=== PATIENT | male | born 1970 | race Caucasian/White ===

== ENCOUNTER 2023-06-23 17:20 | Outpatient (AMB) | payer BC, SELFPAY ==
[2023-06-23 17:23] VITALS: BP 122/90; PULSE 85; O2SAT 97; BMI 22.1
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
== END 2023-06-23 18:02 | disposition home or self-care (01) ==
LOC: HO.HMGH 17:20
PROVIDERS: PCP Internal Medicine; Visit Provider Internal Medicine
DX: Z00.00 Encounter for general adult medical examination without abnormal findings (principal); M79.674 Pain in right toe(s); L30.9 Dermatitis, unspecified; L81.9 Disorder of pigmentation, unspecified; R63.4 Abnormal weight loss; M54.50 Low back pain, unspecified; G89.29 Other chronic pain; M54.2 Cervicalgia; Z12.11 Encounter for screening for malignant neoplasm of colon
CPT/HCPCS: 99396

== ENCOUNTER 2023-07-22 12:55 | Outpatient (AMB) | payer BC, SELFPAY ==
--- NOTE | 2023-07-22 13:03 | MHC.OFFVIS ---
Intake Vital Signs 07/22/23 13:06 Height 6 ft 2 in Weight 180 lb 12.465 oz BMI 23.2 BP 126/88 Blood Pressure Location Lt brachial Position Sitting Pulse 71 Intake Visit Reasons: Colonoscopy Screening Intake Note: Alan presents in the office as a colonoscopy screening. CC: He states that he is having no concerns with his symptoms. No more blood in the stool. He did have a benign polyp and he was supposed to have another colonoscopy. He has an issue with his face where it turns red and it comes and goes - it will also peal. He is not sure if this is related to his intestines. His weight was going down and it was a concern but it seems to have come back. 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 Allergies cyclobenzaprine [From FLEXERIL] Allergy (Unknown, Verified 07/22/23 13:07) NAUSEA/RESTLESS LEGS Medication List - Last Reconciled 07/22/23 by Dee Dee Rodríguez PA-C carisoprodol 350 mg PO BID PRN 30 days HPI HPI Comments History of Present Illness Details A 53 y/o male referred due to hx colon polyps He had a colonoscopy about 8 years ago-for blood in the stool- he had a polyp-was to repeat at 5 year He has no GI complaints bowels ok, typically non issue Appetite good- no heartburn Lost weight- he thought - reweighed- wt the same-he had a associated having extra stress however that has this time resolved. He has no nausea, vomiting, hematemesis, hematochezia, fever chills No headaches, dizziness shortness of breath or chest pain PFSH Medical History IBS (irritable bowel syndrome) Chronic low back pain Chronic neck pain Surgical History S/P colonoscopy (~2013) Family History Mother No problems noted. Father Heart problem Housing: House Alcohol intake: current Alcohol intake frequency: holidays/special occasions only Patient Tobacco Use Status: Never used Tobacco e-Cigarette/Vaping Use: Never Used Second Hand Smoke Exposure: No Substance Use Type: Marijuana service: No Current occupational status: employed ([employer]) Review of Systems Const All systems reviewed & are unremarkable except as noted in HPI and below Card Denies chest pain and Denies dyspnea Resp Denies dyspnea GI Denies abdominal pain, Denies heartburn, Denies nausea and Denies vomiting Psych Reports anxiety Physical Exam Vital Signs: Last Vital Signs Pulse 71 07/22/23 13:06 BP 126/88 07/22/23 13:06 BMI result Body Mass Index 23.2 Const General: cooperative, healthy appearing, comfortable and no acute distress Orientation/consciousness: patient oriented x3 Limitations: no limitations Eyes Sclerae: sclerae normal Resp Effort & Inspection: normal respiratory effort and able to speak in complete sentences Auscultation: clear to auscultation bilaterally, no rales, no rhonchi and no wheezes Cardio Rate: regular rate Rhythm: regular rhythm Heart sounds: S1 normal heart sound present and S2 normal heart sound present GI Palpation (GI): Soft to palpation and nontender Auscultation: normal bowel sounds Skin General skin exam: no rashes or lesions noted Neuro General: patient oriented x3 Extrem General: Yes full ROM Psych Appearance: grossly normal and well kempt Mental Status: mental status grossly normal Speech and movement: Normal speech and movement present Affect: normal affect and Anxious affect present Attitude: cooperative Thought process: Normal thought process present Thought content: Normal thought content present Insight: Good insight present (Psych) Judgement: Good judgement present (Psych) Assessment & Plan Assessment & Plan (1) Weight loss, unintentional: Comment: was stressed-personal issues, wt now normal reviewed GI record-2018 pancreatitis- Code(s): R63.4 - Abnormal weight loss (2) History of colon polyps: Comment: last colonoscopy about 8 years ago Code(s): Z86.010 - Personal history of colonic polyps Plan polyp surveillance colonoscopy MG prep Orders: Orders Colonoscopy - GI Use Only 07/22/23 Z86.010 - Personal history of colonic polyps Medications: New bisacodyl (Dulcolax (bisacodyl)) Day before procedure, prep day Take 4 tablets by mouth upon awakening followed by large glass of water 20 mg (4 x 5 mg) PO ONCE 1 day 4 tabs 0RF colonoscopy prep Z12.11 - Encounter for screening for malignant neoplasm of colon polyethylene glycol 3350 (Miralax) Take as directed by mouth the day before your procedure. 238 grams PO ONCE 1 day 238 grams 0RF laxative effect Patient Instructions: Pleasant 53-year-old male history colon polyps overdue for polyp surveillance Reviewed the indication, rare risks need for escorted due to anesthesia MiraLax Gatorade prep reviewed, literature Opportunity for questions answered to his satisfaction Encouraged to call with questions or concerns Coding Level of Care Code New Pt Level 3 (65861) Diagnoses Weight loss, unintentional R63.4 History of colon polyps Z86.010 Time Spent (min) 30
[2023-07-22 13:06] VITALS: BP 126/88; PULSE 71; BMI 23.2
== END 2023-07-22 13:44 | disposition home or self-care (01) ==
PROVIDERS: PCP Internal Medicine; Visit Provider Physician Assistant
DX: R63.4 Abnormal weight loss (principal); Z86.010 Personal history of colon polyps
CPT/HCPCS: 99203

== ENCOUNTER → 2023-07-22 12:55 | Outpatient (BNVA) | payer BC, SELFPAY | PROVIDERS: PCP Internal Medicine; Visit Provider Physician Assistant ==

== ENCOUNTER 2025-08-12 15:21 | Outpatient (AMB) | payer BC, SELFPAY ==
--- NOTE | 2025-08-12 15:38 | A.OFFVIS_ITS ---
Vital Signs 08/12/25 15:40 Height 6 ft 2 in Weight 178 lb BMI 22.9 BP 112/67 Blood Pressure Location Lt brachial Position Sitting Pulse 78 Intake Visit Reasons: pre Colonoscopy Intake Note: Patient complex follow up for 2nd pre Colonoscopy screening/Dee Dee former pt katie was 07/22/2023. Patient cc: rectal bleeding on and off in the pass, denies any other GI issues. 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 Referred by PCP for pre colonoscopy screening and further evaluation of blood in his stools. He reports an episode of blood in his stool noted on wiping a few months ago, which has since resolved. He had a more significant episode of hematochezia approximately 10 years ago, describing it as dripping at times. His first and only colonoscopy was performed 7-8 years ago, polyp findings, and he was recommended to follow up in 5 years, making him currently overdue. He reports normal daily bowel movements with a sense of complete evacuation and denies associated abdominal pain, nausea, or vomiting. The patient reports heartburn that occurs when he is sleeping and is triggered by overeating, which resolves on its own. He denies regurgitation but has had lifelong difficulty swallowing pills, though he denies dysphagia with food. His past medical history includes a possible history of anemia noted on labs from 2018 and a hospitalization in 2018 for severe stomach pain. He denies any personal or family history of colon or stomach cancer. Patient denies: fever/chills, n/v, appetite changes, regurgitation,dysphasia, unintentional wt loss, ab pain. Social hx: -ETOH use The patient reports rare alcohol consumption, with his last use being over the summer. -smokes marijuana , denies other recreational drug use -non-smoker - family hx as below -denies personal hx of CA -denies significant cardiopulmonary history -tolerated anesthesia in the past without difficulty. [facility] Medical History (Updated 08/12/25 @ 16:11 by Sol Wesley CNP) Heartburn Anemia IBS (irritable bowel syndrome) Chronic low back pain Chronic neck pain Surgical History S/P colonoscopy (~2013) Family History Mother No problems noted. Father Heart problem Social History Housing: House Alcohol intake: current Alcohol intake frequency: holidays/special occasions only Patient Tobacco Use Status: Never used Tobacco e-Cigarette/Vaping Use: Never Used Second Hand Smoke Exposure: No Substance Use Type: Marijuana service: No Current occupational status: employed ([employer]) Review of Systems Const Reports as per HPI ENT Reports as per HPI Card Reports as per HPI Resp Reports as per HPI GI Reports as per HPI Reports as per HPI Physical Exam Vital Signs: Last Vital Signs Pulse 78 08/12/25 15:40 BP 112/67 08/12/25 15:40 BMI result Body Mass Index 22.9 Const General: healthy appearing, no acute distress and well developed Nutritional Appearance: average body habitus Orientation/consciousness: patient oriented x3 HEENT Head: Yes normal to inspection, Yes normocephalic and Yes atraumatic Face and sinus: Yes normal facial exam Eyes General: appearance normal, both eyes and all related structures Neck Neck: Yes normal visual inspection Resp Effort & Inspection: normal respiratory effort, able to speak in complete sentences, no tracheal deviation and symmetric chest movement Cardio Jugular venous distension: no JVD Neuro General: patient oriented x3 Gait exam (Neuro): Normal gait present Psych Appearance: grossly normal Mental Status: mental status grossly normal Speech and movement: Normal speech and movement present Affect: normal affect Attitude: cooperative Thought process: Normal thought process present Thought content: Normal thought content present Insight: Good insight present (Psych) Judgement: Good judgement present (Psych) Assessment & Plan Assessment & Plan (1) Colon cancer screening: Code(s): Z12.11 - Encounter for screening for malignant neoplasm of colon Category: Medical Plan: The patient is overdue for a screening colonoscopy and has a history of hematochezia. - The differential diagnosis for his symptoms includes hemorrhoids, fissures, polyps, or malignancy. - An order for a colonoscopy will be placed, and the scheduling team will contact the patient to arrange the appointment. - The bowel preparation will consist of a full bottle of Miralax mixed with 64 ounces of Gatorade, supplemented with laxative tablets sent to [facility] pharmacy. - Instructions provided include following a clear liquid diet the day before the procedure, avoiding red, blue, or purple colored liquids. - The patient was instructed to have nothing by mouth, including water, for 4 hours prior to the procedure and was reminded to arrange for reliable transportation due to sedation. (2) Blood in stool: Code(s): K92.1 - Melena Category: Medical Plan: as above (3) Heartburn: Code(s): R12 - Heartburn Category: Medical Plan: The patient reports heartburn triggered by overeating which resolves spontaneously. - No active management warranted, symptoms appear to be self-limited and managed with dietary awareness. (4) Anemia: Code(s): D64.9 - Anemia, unspecified Category: Medical Qualifiers: Anemia type: unspecified type Qualified Code(s): D64.9 - Anemia, unspecified Plan: The patient has a history of macrocytic anemia from 2018, but no recent lab work is available. - An order for basic labs was placed for the patient to complete on a walk-in basis prior to his upcoming appointment with his primary care provider. Plan Follow-up after colonoscopy or sooner as needed Time: I spent a total of 20 minutes on the date of encounter which includes: Preparing to see the patient (reviewed previous documentation, test results and medical history) Performing a medically appropriate exam and/or evaluation Ordering medications, tests, and procedures Documenting clinical information in the health record Orders: Orders Comprehensive [place]. Panel Fast Today D64.9 - Anemia, unspecified, K92.1 - Melena Lipase Today K92.1 - Melena Complete Blood Count Auto Diff Today D64.9 - Anemia, unspecified, K92.1 - Melena, Z12.11 - Encounter for screening for malignant neoplasm of colon Vitamin B12 and Folate Today D64.9 - Anemia, unspecified Referrals GI Procedure Notification K92.1 - Melena, Z12.11 - Encounter for screening for malignant neoplasm of colon Medications: New polyethylene glycol 3350 (Miralax) per colonoscopy prep instructions 238 grams PO ONCE 238 grams 0RF bisacodyl take four tablets once day of colonoscopy prep 20 mg (4 x 5 mg) PO ONCE 4 tabs 0RF Coding Level of Care Code New Pt Est Pt Level 3 (02533) Patient Type New Diagnoses Colon cancer screening Z12.11 Blood in stool K92.1 Heartburn R12 Anemia, unspecified type D64.9 Anemia type: unspecified type
[2025-08-12 15:40] VITALS: BP 112/67; PULSE 78; BMI 22.9
== END 2025-08-12 16:57 | disposition home or self-care (01) ==
LOC: HO.HGI 15:22
PROVIDERS: PCP Internal Medicine; Visit Provider Nurse Practitioner Family
DX: Z01.818 Encounter for other preprocedural examination (principal); Z12.11 Encounter for screening for malignant neoplasm of colon; K92.1 Melena; R12 Heartburn; D64.9 Anemia, unspecified
CPT/HCPCS: S0285

== ENCOUNTER 2025-08-31 14:30 | Outpatient (AMB) | payer BC, SELFPAY ==
--- NOTE | 2025-08-31 14:37 | A.OFFPC_ITS ---
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 Required: No Accompanied by: Self / Same As Patient Allergies cyclobenzaprine (From [facility]LEXERIL) Allergy (Unknown, Verified 08/31/25 14:50) NAUSEA/RESTLESS LEGS Medication List - Last Reconciled 08/31/25 by LAURI Borden bisacodyl 20 mg (4 x 5 mg) PO ONCE polyethylene glycol 3350 (Miralax) 238 grams PO ONCE Tobacco use date assessed: 08/31/25 Dental Screening Dental Screen Date: 08/31/25 Did you have a dental visit in the last 12 months?: Yes Did you have a dental problem in the last 6 months where you did not have access to dental care?: No Was dental information given to patient?: Patient has dentist HPI annual exam - see comments HPI Details Dentist: up to date Eye: due, has not for 7 years Snellen: Right: Left: Corrected vision: no STI screening: Colonoscopy: waiting for a call back Pap Smer:n/a PHQ-9: Flu: does not take the flu vaccine COVID: x3 Tdap: declines Diet: regular Exercise:work out few times a week, built a gym in the basement The patient is a 55 year old male presenting for an annual physical examination. He reports new-onset, severe, intermittent pain in the joint of his great toe, which causes him to limp most days. The pain occurs for no apparent reason and can be severe enough to affect his ability to walk. He also reports similar, though less severe, pain in his thumb joint, which he attributes to possible arthritis. The patient does have chronic lower back pain for which he takes soma intermittently. He has a history of hematochezia approximately 10 years ago, for which he underwent a colonoscopy. He recently experienced a recurrence of bright red blood in his stool, which has been subsiding. He is currently awaiting a call to schedule a follow-up colonoscopy. Past medical history is significant for an episode of pancreatitis two years ago, which required a one-week hospitalization. This was attributed to an overconsumption of fatty and sugary foods. He also has a history of a bulging disc since age 10, which has been managed without surgery and is generally stable, though he reports occasional back pain and a recent back tweak after skiing. Regarding immunizations, he has had the initial COVID-19 vaccine and one booster but experienced a bad reaction with nausea, cold sweats, and chest pain, and thus declines further doses. He does not receive the annual flu vaccine and declined a tetanus vaccine today, but he plans to get the shingles vaccine. Health Maintenance - Dental care: Patient had a dental visi t yesterday. - Eye exam: Patient has not had a recent eye exam but notes difficulty with reading small print and plans to see an provider contracting consultant. - Colon cancer screening: Patient is patience eduled for a colonoscopy and is awaiting a call with the date and prep kit. - Prostate cancer screening: Patient has not had a prostate exam before and is considering one. He will have his PSA level checked with his fasting labs. He was advised to avoid sexual activity and bicycling for 24 hours prior to the blood test. - Immunizations: He declines the influen za and tetanus vaccines. - He declines further COVID-19 vaccines due to a prior adverse reaction. - He plans to get the shingles vaccine a t a pharmacy. - Diet and exercise: He reports having a regular diet and exercises a few times a week, engaging in cardio activities using a heavy bag and speed bag. Social History - Diet: Reports a regular diet with no s pecial restrictions. - Exercise: He works out a few times per week in a home gym, which includes a heavy bag, speed bag, and weights, focusing on cardiovascular exercise. Results HPI Comments History of Present Illness Details History of Present Illness The patient is a 55 year old male presenting for an annual physical examination. He reports new-onset, severe, intermittent pain in the joint of his great toe, which causes him to limp most days. The pain occurs for no apparent reason and can be severe enough to affect his ability to walk. He also reports similar, though less severe, pain in his thumb joint, which he attributes to possible arthritis. The patient does have chronic lower back pain for which he takes soma intermittently. He has a history of hematochezia approximately 10 years ago, for which he underwent a colonoscopy. He recently experienced a recurrence of bright red blood in his stool, which has been subsiding. He is currently awaiting a call to schedule a follow-up colonoscopy. Past medical history is significant for an episode of pancreatitis two years ago, which required a one-week hospitalization. This was attributed to an overconsumption of fatty and sugary foods. He also has a history of a bulging disc since age 10, which has been managed without surgery and is generally stable, though he reports occasional back pain and a recent back tweak after skiing. Regarding immunizations, he has had the initial COVID-19 vaccine and one booster but experienced a bad reaction with nausea, cold sweats, and chest pain, and thus declines further doses. He does not receive the annual flu vaccine and declined a tetanus vaccine today, but he plans to get the shingles vaccine. Health Maintenance - Dental care: Patient had a dental visi t yesterday. - Eye exam: Patient has not had a recent eye exam but notes difficulty with reading small print and plans to see an provider contracting consultant. - Colon cancer screening: Patient is patience eduled for a colonoscopy and is awaiting a call with the date and prep kit. - Prostate cancer screening: Patient has not had a prostate exam before and is considering one. He will have his PSA level checked with his fasting labs. He was advised to avoid sexual activity and bicycling for 24 hours prior to the blood test. - Immunizations: He declines the influen za and tetanus vaccines. - He declines further COVID-19 vaccines due to a prior adverse reaction. - He plans to get the shingles vaccine a t a pharmacy. - Diet and exercise: He reports having a regular diet and exercises a few times a week, engaging in cardio activities using a heavy bag and speed bag. Social History - Diet: Reports a regular diet with no s pecial restrictions. - Exercise: He works out a few times per week in a home gym, which includes a heavy bag, speed bag, and weights, focusing on cardiovascular exercise. Results [facility] Medical History Heartburn Anemia IBS (irritable bowel syndrome) Chronic low back pain Chronic neck pain Surgical History S/P colonoscopy (~2013) Family History Mother No problems noted. Father Heart problem Social History Housing: House Alcohol intake: current Alcohol intake frequency: holidays/special occasions only Patient Tobacco Use Status: Never used Tobacco e-Cigarette/Vaping Use: Never Used Second Hand Smoke Exposure: No Substance Use Type: Marijuana service: No Current occupational status: employed ([employer]) Cognitive needs: No Hearing needs: No Vision needs: No Questionnaire PHQ-9 Over the last 2 weeks, how often have you been bothered by any of the following problems? 1. Little interest or pleasure in doing things: not at all 2. Feeling down, depressed, or hopeless: not at all 3. Trouble falling or staying asleep, or sleeping too much: not at all 4. Feeling tired or having little energy: not at all 5. Poor appetite or overeating: not at all 6. Feeling bad about yourself - or that you are a failure or have let yourself or your family down: not at all 7. Trouble concentrating on things, such as reading the newspaper or watching television: not at all 8. Moving or speaking so slowly that other people could have noticed. Or the opposite - being so fidgety or restless that you have been moving around a lot more than usual: not at all 9. Thoughts that you would be better off or of hurting yourself in some way: not at all Total score: 0 Depression Screening Interpretation: Negative Depression Screening Done: Yes 03453 - PHQ-9 Billing: Yes Source: Developed by Drs. Henry aRmey, Shazia De La Fuente, Suraj Armstrong and colleagues, with an educational jenna from [employer]. Thrive Questionnaire Date Thrive assessed: 08/31/25 I am a: Patient What is your living situation today?: I have a steady place to live Within the past 12 months, did the food you bought not last and you didn't have the money to get more?: I choose not to answer this question Within the past 12 months, did you worry whether your food would run out before you got money to buy more?: I choose not to answer this question Do you have trouble paying for medicines?: I choose not to answer this question Do you have trouble getting transportation to medical appointments?: I choose not to answer this question Do you have trouble paying your heating and electricity bill?: I choose not to answer this question Do you have trouble taking care of your child, family member or friend?: I choose not to answer this question Do you have trouble with day-to-day activities such as bathing, preparing meals, shopping, managing finances, etc.?: I choose not to answer this question Are you currently unemployed and looking for a job?: I choose not to answer this question Are you interested in more education?: I choose not to answer this question Please select the resources that you would like help with: None Currently or been in a relationship where the following occur: I choose not to answer THRIVE Score: 0 AUDIT C Alcohol Use Questionnaire (AUDIT-C) 1. How often do you have a drink containing alcohol?: Never Total Score: 0 ALIVIA-7 AMB Questionnaire AILVIA-7 Date ALIVIA - 7 assessed: 08/31/25 Feeling nervous, anxious, or on edge: 0 = Not at all Not being able to stop or control worryin = Not at all Worrying too much about different things: 0 = Not at all Trouble relaxin = Not at all Being so restless that it is hard to sit still: 0 = Not at all Becoming easily annoyed or irritable: 0 = Not at all Feeling afraid as if something awful might happen: 0 = Not at all Total ALIVIA-7 score (0-4 normal; 5-9 mild; 10-14 moderate; 15-21 severe): 0 Source: Developed by Drs. Henry Ramey, Shazia De La Fuente, Suraj Armstrong and colleagues, with an educational jenna from [employer]. ALIVIA-7 Assessment Billing ALIVIA-7 Assessment Tool: ALIVIA-7 Assessment 47086 Review of Systems Const Denies headache(s) Eyes Denies loss of vision ENT Denies vertigo, Denies dizziness, Denies headache(s) and Denies sore throat Card Denies chest pain, Denies leg edema and Denies lightheadedness Resp Denies cough, Denies hemoptysis and Denies wheezing GI Denies abdominal pain, Denies melena, Denies constipation, Denies diarrhea and Denies vomiting Denies dysuria, Denies urinary frequency and Denies urinary urgency Musc Reports back pain (on and off), Reports arthralgias (right great toe), Denies joint swelling, Denies numbness and Denies tingling Neuro Denies Abnormal speech present, Denies behavioral changes, Denies vertigo, Denies dizziness, Denies headache(s), Denies loss of vision, Denies memory loss, Denies numbness and Denies tingling Psych Denies anxiety, Denies behavioral changes, Denies depression, Denies memory loss and Denies panic attacks Kunal/Lymph Denies easy bleeding and Denies easy bruising Aller/Immun Denies wheezing Physical exam (Primary Care) Vital Signs: Last Vital Signs Resp 18 08/31/25 14:45 BP 112/60 08/31/25 14:45 Oxygen Delivery Method Room Air 08/31/25 14:45 BMI result Body Mass Index 23.6 Tobacco/Smoking Status: Tobacco use Status Tobacco use date assessed 08/31/25 08/31/25 14:50 Patient Tobacco Use Status Never used Tobacco 08/31/25 14:37 e-Cigarette/Vaping Use Never Used 08/31/25 14:37 PHQ-9: PHQ-9 Score PHQ-9: Total score 0 08/31/25 15:12 Depression Screening Interpretation: Negative Thrive Assessment: Date of Thrive Assessment Date Thrive assessed 08/31/25 08/31/25 14:50 Currently or been in a relationship where the following occur: I choose not to answer Const General: healthy appearing, no acute distress, alert and awake Nutritional Appearance: well nourished Orientation/consciousness: oriented to person, oriented to place and oriented to time [facility] Ears: TM normal on the right and Abnormal EAC present excessive cerumen on the right General nose exam: Normal nasal mucous membranes and turbinates present Eyes Conjunctivae: conjunctivae normal Sclerae: sclerae normal Pupils: Equal, round and reactive pupils present Neck Neck: Yes no lymphadenopathy and Yes no JVD Thyroid: Thyroid normal Carotids: no bruits Resp Effort & Inspection: normal respiratory effort and not tachypneic Auscultation: no crackles, no rales, no rhonchi and no wheezes Cardio Rate: regular rate Rhythm: regular rhythm Heart sounds: S1 normal heart sound present, S2 normal heart sound present, no murmurs and normal S1 and S2 GI Palpation (GI): Soft to palpation, nontender, no hepatomegaly and no splenomegaly Auscultation: normal bowel sounds General: Yes no CVA tenderness Back/Spine/Pelvis Back: no CVA tenderness Thoracic/Lumbar Spine: No lumbar spinal tenderness Skin General skin exam: no rashes or lesions noted and dry skin Neuro General: oriented to person, oriented to place and oriented to time Cranial nerves: Yes CN's II-XII intact bilaterally, Yes Equal, round and reactive pupils present and Yes Nystagmus not present Speech: No Abnormal speech present Gait exam (Neuro): Normal gait present Motor exam (neuro): no tremor noted Deep tendon reflexes (DTR's): Right triceps reflex intensity grade: 2+, Left triceps reflex intensity grade: 2+, Rt Biceps (C5, C6): 2+, Left biceps reflex intensity grade: 2+, Right brachioradialis reflex intensity grade: 2+, Left brachioradialis reflex intensity grade: 2+, Right patellar reflex intensity grade: 2+ and Left patellar reflex intensity grade: 2+ Extrem Right upper extremity: full ROM Left upper extremity: full ROM Right lower extremity: full ROM and foot Details: toes with normal ROM and no edema; no edema Left lower extremity: full ROM; no edema Psych Mental Status: mental status grossly normal Speech and movement: Normal speech and movement present Affect: normal affect Attitude: cooperative Thought process: Normal thought process present Coding Level of Care Code Est Pt Prev Care 40-64y(98175) Diagnoses Annual physical exam Z00.00 Pain of right great toe M79.674 Chronic midline low back pain, unspecified whether sciatica present M54.50; G89.29 Chronicity: chronic Back pain laterality: midline Sciatica presence: unspecified whether sciatica present Anemia, unspecified type D64.9 Anemia type: unspecified type Blood in stool K92.1 Heartburn R12 Immunization counseling Z71.85 Impacted cerumen of right ear H61.21 Additional Codes ALIVIA-7 Assessment Billing - ALIVIA-7 Assessment Tool: ALIVIA-7 Assessment 15488 ([id number]) PHQ-9 - 15755 - PHQ-9 Billing: Yes ([id number]) Time Spent (min) 37 Assessment & Plan Assessment & Plan (1) Annual physical exam: Code(s): Z00.00 - Encounter for general adult medical examination without abnormal findings Category: Medical (2) Pain of right great toe: Code(s): M79.674 - Pain in right toe(s) Category: Medical (3) Low back pain: Code(s): M54.50 - Low back pain, unspecified Category: Medical Qualifiers: Chronicity: chronic Back pain laterality: midline Sciatica presence: unspecified whether sciatica present Qualified Code(s): M54.50 - Low back pain, unspecified; G89.29 - Other chronic pain (4) Anemia: Code(s): D64.9 - Anemia, unspecified Category: Medical Qualifiers: Anemia type: unspecified type Qualified Code(s): D64.9 - Anemia, unspecified (5) Blood in stool: Code(s): K92.1 - Melena Category: Medical (6) Heartburn: Code(s): R12 - Heartburn Category: Medical (7) Immunization counseling: Code(s): Z71.85 - Encounter for immunization safety counseling Category: Medical (8) Impacted cerumen of right ear: Code(s): H61.21 - Impacted cerumen, right ear Category: Medical Plan Plan Patient was informed and verbally consented to the use of an ambient scribe for clinic note documentation during this visit. 1. Annual Health Maintenance The patient will proceed with fasting labs, which will include a cholesterol panel and a PSA test for prostate cancer screening. He was counseled to avoid any activity that puts pressure on the groin area, such as sexual activity or bicycling, for 24 hours prior to the PSA blood draw to avoid false elevations. He is pending scheduling for a colonoscopy. He was encouraged to see an provider contracting consultant for his vision changes. He plans to obtain the shingles vaccine. He declined the influenza and tetanus vaccines. Follow-up is scheduled for his annual physical next year. 2. Arthralgia Of Great Toe To evaluate the severe, intermittent pain in his great toe, an X-ray of the foot has been ordered. He can have this done at the same time as his lab work. 3. Hematochezia The patient reports a recent, resolving episode of bright red blood per rectum. This will be further evaluated with the upcoming colonoscopy he is scheduled for. 4. Cerumen Impaction Significant cerumen impaction was noted on examination. The patient reports using ear drops and a home water device for management and was encouraged to continue efforts to clear the impaction. 5. Low back pain Ongoing low back pain that is managed intermittently with Soma. Patient requested a refill of soma. Rx refilled 6. Heartburn Reinforced dietary restrictions. Avoid eating close to bedtime. Discussion Notes I discussed the plan for the patient's health maintenance and current concerns. I have ordered fasting labs to check his cholesterol and a PSA for prostate cancer screening. I advised him that to ensure the accuracy of the PSA test, he should avoid sexual activity or any other activity causing pressure in the groin area, like riding a bicycle, for 24 hours beforehand. Due to his report of severe toe pain, I have ordered an X-ray, which he can get done at the same time as his labs. We discussed his vaccination status, noting his plan to get the shingles vaccine and his decision to decline the flu and tetanus vaccines. He will follow up for his next annual physical next year. Patient Instructions - Please go to the lab for blood work. You will need to fast for 8-12 hours before the test. You may drink water or black coffee without cream or sugar. - For 24 hours before your blood test, please avoid any sexual activity or riding a bicycle. This is to make sure your prostate test (PSA) is accurate. - An X-ray of your foot has been ordered to check the cause of your toe pain. You can get this done when you go for your lab work. - You will receive a call to schedule your colonoscopy. - You may get the shingles vaccine at your local pharmacy. - Consider making an appointment with an eye doctor (provider contracting consultant) for your difficulty with reading. - Please schedule a follow-up appointment for your next annual physical in one year. Orders: Orders Complete Blood Count Auto Diff 08/31/25 L30.9 - Dermatitis, unspecified, L81.9 - Disorder of pigmentation, unspecified, Z00.00 - Encounter for general adult medical examination without abnormal findings Lipid Panel 08/31/25 L30.9 - Dermatitis, unspecified, L81.9 - Disorder of pigmentation, unspecified, Z00.00 - Encounter for general adult medical examination without abnormal findings TSH reflex Free T4 08/31/25 L30.9 - Dermatitis, unspecified, L81.9 - Disorder of pigmentation, unspecified, Z00.00 - Encounter for general adult medical examination without abnormal findings Vitamin D 25-OH Total 08/31/25 L30.9 - Dermatitis, unspecified, L81.9 - Disorder of pigmentation, unspecified, Z00.00 - Encounter for general adult medical examination without abnormal findings Hemoglobin A1c 08/31/25 L30.9 - Dermatitis, unspecified, L81.9 - Disorder of pigmentation, unspecified, Z00.00 - Encounter for general adult medical examination without abnormal findings XR toe RT min 2V 08/31/25 M79.674 - Pain in right toe(s) Comprehensive [place]. Panel Fast 08/31/25 L30.9 - Dermatitis, unspecified, L81.9 - Disorder of pigmentation, unspecified, Z00.00 - Encounter for general adult medical examination without abnormal findings UA CC w/rflx Micro + Cult 08/31/25 L30.9 - Dermatitis, unspecified, L81.9 - Disorder of pigmentation, unspecified, Z00.00 - Encounter for general adult medical examination without abnormal findings PSA,Total (Free>4and<10) 08/31/25 L30.9 - Dermatitis, unspecified, L81.9 - Disorder of pigmentation, unspecified, Z00.00 - Encounter for general adult medical examination without abnormal findings Uric Acid 08/31/25 M79.674 - Pain in right toe(s) Medications: Refilled carisoprodol 1 tablet Orally 1 to 2 times a day as needed for neck and back pain 350 mg PO BID PRN 60 tabs 0RF muscle pain 30 days
[2025-08-31 14:45] VITALS: BP 112/60; RESP 18; BMI 23.6
== END 2025-08-31 15:57 | disposition home or self-care (01) ==
LOC: HO.HMCH 14:31
PROVIDERS: PCP Internal Medicine
DX: Z00.00 Encounter for general adult medical examination without abnormal findings (principal); M79.674 Pain in right toe(s); M54.50 Low back pain, unspecified; G89.29 Other chronic pain; D64.9 Anemia, unspecified; K92.1 Melena; R12 Heartburn; Z71.85 Encounter for immunization safety counseling; H61.21 Impacted cerumen, right ear

== ENCOUNTER → 2025-08-31 14:30 | Outpatient (BNVA) | payer BC, SELFPAY | PROVIDERS: PCP Internal Medicine | DX: Z00.01 Encounter for general adult medical examination with abnormal findings (principal); M79.674 Pain in right toe(s); M54.50 Low back pain, unspecified; G89.29 Other chronic pain; K92.1 Melena; D64.9 Anemia, unspecified; H61.21 Impacted cerumen, right ear; R12 Heartburn; Z71.85 Encounter for immunization safety counseling; Z13.31 Encounter for screening for depression; Z13.39 Encounter for screening examination for other mental health and behavioral disorders | CPT/HCPCS: 96127 ==